=== PATIENT | female | born 2000 | race Caucasian/White ===

== ENCOUNTER 2019-08-30 15:57 | Observation (INO) ==
[2019-08-30] MEDS ORDERED: Isovue-370 500 ML BOTTLE IVP ONE (16:25)
[2019-08-30 17:00] LABS: Basophils % 0.4 %; Eosinophils # 0.2 K/mcL (0.0-0.6); Eosinophils % 2.1 %; Hematocrit 37.9 % (35.3-44.9); Hemoglobin 13.1 g/dL (11.5-15.4); Immature Granulocytes % 0.1 % (0-4); Lymphocytes # 1.3 K/mcL (0.6-4.6); Lymphocytes % 17.7 %; Mean Corpuscular HGB Conc 34.6 g/dL (31.6-35.5); Mean Corpuscular Hemoglobin 30.3 pg (28.0-33.3); Mean Corpuscular Volume 87.7 fL (83.0-100.0); Mean Platelet Volume 9.6 fL (9.4-12.4); Monocytes # 0.6 K/mcL (0.0-1.3); Monocytes % 8.1 %; Neutrophils # 5.2 K/mcL (1.6-8.9); Platelet Count 263 K/mcL (140-400); Red Blood Count 4.32 M/mcL (3.82-4.97); Red Cell Distribution Width 11.7 % (11.5-14.5); Segmented Neutrophils % 71.6 %; White Blood Count 7.3 K/mcL (4.3-11.1)
[2019-08-30 17:15] LABS: BUN/Creatinine Ratio 14 (6-26); Blood Urea Nitrogen 10 mg/dL (6-20); Calcium 9.8 mg/dL (8.6-10.3); Carbon Dioxide 26 mEq/L (23-29); Chloride 102 mEq/L (98-107); Glucose 94 mg/dL (70-105); Osmolality,Calculated 283 (280-300); Potassium 3.9 mEq/L (3.5-5.1); Sodium 137 mEq/L (136-145); eGFR For African Americans > 60 (> 60); eGFR For Non-African Americans > 60 (> 60)
[2019-08-30 17:16] LABS: Troponin I < 0.03 ng/mL (< 0.04)
[2019-08-30 17:29] LABS: Bacteria,Urine None Seen per hpf (None-Few); Bilirubin,Urine Negative (Negative); Blood,Urine Large (Negative); Clarity,Urine Clear (Clear); Color,Urine Yellow (Yellow); Glucose,Urine (UA) Normal (Normal); Hyaline Casts,Urine None Seen per lpf (None-Few); Ketones,Urine Negative (Negative); Leukocyte Esterase,Urine Negative (Negative); Nitrite,Urine Negative (Negative); PH,Urine 6.5 pH Units (5.0-8.0); Protein,Urine Negative (Neg-Trace); Specific Gravity,Urine 1.021 (1.010-1.025); Squamous Epithelial Cell,Urine Many per lpf (None-Few); Urobilinogen,Urine Normal (Normal); WBC,Urine 0-3 per hpf (0-3)
[2019-08-30 17:39] LABS: INR 1.9; Prothrombin Time 21.6 Seconds (9.4-12.1)
[2019-08-30] MEDS ORDERED: *HR* Heparin 5,000 UNIT/ML VIAL IVP ONE (19:12)
[2019-08-30] MEDS ORDERED: *HR* Heparin 5,000 UNIT/ML VIAL IVP PRN (19:12)
[2019-08-30] MEDS ORDERED: Heparin 25,000 UNIT/250 ML D5W 25,000 UNIT/250 ML IV.SOLN IVC SCH (19:15)
[2019-08-30] MEDS ORDERED: Morphine Sulfate 2 MG/ML SYRINGE IVP ONE (19:21)
[2019-08-30 19:26] LABS: Hematocrit 35.1 % (35.3-44.9); Hemoglobin 12.2 g/dL (11.5-15.4); Mean Corpuscular HGB Conc 34.8 g/dL (31.6-35.5); Mean Corpuscular Hemoglobin 30.6 pg (28.0-33.3); Mean Platelet Volume 9.4 fL (9.4-12.4); Platelet Count 233 K/mcL (140-400); Red Blood Count 3.99 M/mcL (3.82-4.97); Red Cell Distribution Width 11.6 % (11.5-14.5); White Blood Count 7.7 K/mcL (4.3-11.1)
[2019-08-30] MEDS: Heparin 25,000 UNIT/250 ML D5W 25,000 UNIT/250 ML IV.SOLN IVC SCH (19:34)
[2019-08-30 19:36] LABS: INR 1.5; Prothrombin Time 17.6 Seconds (9.4-12.1)
[2019-08-30 19:39] LABS: Heparin anti-factor XA UFH 1.37 IU/mL (0.30-0.70)
[2019-08-30] MEDS ORDERED: Naloxone 0.4 MG/ML INJ IVP PRN (23:40)
[2019-08-30] MEDS ORDERED: Ondansetron ODT 4 MG TAB.RAPDIS SL PRN (23:40)
[2019-08-30] MEDS ORDERED: 0.9 % Sodium Chloride 1,000 ML IVC SCH (23:45)
[2019-08-31] MEDS ORDERED: Naloxone 0.4 MG/ML INJ IVP PRN ×2 (01:35→13:56)
[2019-08-31 01:55] LABS: Basophils % 0.4 %; Eosinophils # 0.1 K/mcL (0.0-0.6); Eosinophils % 1.7 %; Hematocrit 33.3 % (35.3-44.9); Hemoglobin 11.4 g/dL (11.5-15.4); Immature Granulocytes % 0.3 % (0-4); Lymphocytes # 1.8 K/mcL (0.6-4.6); Lymphocytes % 26.3 %; Mean Corpuscular HGB Conc 34.2 g/dL (31.6-35.5); Mean Corpuscular Hemoglobin 30.1 pg (28.0-33.3); Mean Corpuscular Volume 87.9 fL (83.0-100.0); Mean Platelet Volume 9.7 fL (9.4-12.4); Monocytes # 0.5 K/mcL (0.0-1.3); Monocytes % 7.6 %; Neutrophils # 4.5 K/mcL (1.6-8.9); Platelet Count 224 K/mcL (140-400); Red Blood Count 3.79 M/mcL (3.82-4.97); Red Cell Distribution Width 11.6 % (11.5-14.5); Segmented Neutrophils % 63.7 %
[2019-08-31 02:07] LABS: Alanine Aminotransferase 4 Units/L (7-52); Albumin 3.7 g/dL (3.5-5.7); Albumin/Globulin Ratio 1.2 (1.1-2.2); Alkaline Phosphatase 41 Units/L (34-104); Aspartate Amino Transferase 11 Units/L (13-39); BUN/Creatinine Ratio 18 (6-26); Bilirubin,Total 0.4 mg/dL (0.3-1.0); Blood Urea Nitrogen 10 mg/dL (6-20); Carbon Dioxide 23 mEq/L (23-29); Chloride 105 mEq/L (98-107); Glucose 141 mg/dL (70-105); Osmolality,Calculated 285 (280-300); Potassium 3.3 mEq/L (3.5-5.1); Sodium 137 mEq/L (136-145); Total Protein 6.7 g/dL (6.4-8.9); eGFR For African Americans > 60 (> 60); eGFR For Non-African Americans > 60 (> 60)
[2019-08-31 02:10] LABS: Phosphorous 3.2 mg/dL (2.7-4.5); Troponin I < 0.03 ng/mL (< 0.04)
[2019-08-31 08:04] LABS: Estimated Average Glucose 97 mg/dl
[2019-08-31] MEDS: *HR* Heparin 5,000 UNIT/ML VIAL IVP PRN ×2 (10:01→17:09)
[2019-08-31] MEDS ORDERED: Acetaminophen 325 MG TABLET PO PRN (13:56)
[2019-08-31] MEDS: *HR* OxyCODONE Immed Rel 5 MG TABLET PO PRN (17:09)
[2019-08-31] MEDS: Heparin 25,000 UNIT/250 ML D5W 25,000 UNIT/250 ML IV.SOLN IVC SCH (18:18)
[2019-09-01 01:57] LABS: Basophils % 0.3 %; Eosinophils # 0.1 K/mcL (0.0-0.6); Eosinophils % 1.9 %; Hematocrit 32.5 % (35.3-44.9); Hemoglobin 11.3 g/dL (11.5-15.4); Immature Granulocytes % 0.2 % (0-4); Lymphocytes % 31.4 %; Mean Corpuscular HGB Conc 34.8 g/dL (31.6-35.5); Mean Corpuscular Hemoglobin 30.5 pg (28.0-33.3); Mean Corpuscular Volume 87.8 fL (83.0-100.0); Mean Platelet Volume 9.4 fL (9.4-12.4); Monocytes # 0.6 K/mcL (0.0-1.3); Monocytes % 8.8 %; Neutrophils # 3.7 K/mcL (1.6-8.9); Platelet Count 264 K/mcL (140-400); Red Cell Distribution Width 11.6 % (11.5-14.5); Segmented Neutrophils % 57.4 %; White Blood Count 6.5 K/mcL (4.3-11.1)
[2019-09-01 02:16] LABS: BUN/Creatinine Ratio 13 (6-26); Blood Urea Nitrogen 7 mg/dL (6-20); Calcium 9.1 mg/dL (8.6-10.3); Carbon Dioxide 25 mEq/L (23-29); Chloride 101 mEq/L (98-107); Glucose 92 mg/dL (70-105); Osmolality,Calculated 278 (280-300); Potassium 3.6 mEq/L (3.5-5.1); Sodium 135 mEq/L (136-145); eGFR For African Americans > 60 (> 60); eGFR For Non-African Americans > 60 (> 60)
[2019-09-01] MEDS ORDERED: Vancomycin 1,000 MG, Sodium Chloride IRRigation 1,000 ML IR ONE (06:00)
[2019-09-01] MEDS: Heparin 25,000 UNIT/250 ML D5W 25,000 UNIT/250 ML IV.SOLN IVC SCH (13:14)
[2019-09-01] MEDS: *HR* OxyCODONE Immed Rel 5 MG TABLET PO PRN (16:52)
[2019-09-01] MEDS ORDERED: WATER FOR INJ IVPB ONE (20:15)
[2019-09-01] MEDS ORDERED: ALTEPLASE IVPB ONE (20:15)
[2019-09-01] MEDS ORDERED: Lidocaine HCL 4 ML Topical Solution (Laryng-O-Jet Kit Sterile Pak) TP ONE (20:22)
[2019-09-01] MEDS ORDERED: *HR* Rocuronium Bromide 50 MG/5 ML VIAL ONE (20:22)
[2019-09-01] MEDS ORDERED: *HR* FentaNYL (PF) 100 MCG/2 ML VIAL ONE ×2 (20:22→22:14)
[2019-09-01] MEDS ORDERED: *HR* Midazolam HCl 2 MG/2 ML VIAL ONE (20:22)
[2019-09-01] MEDS ORDERED: *HR* Propofol 200 MG/20 ML VIAL IVP ONE (20:22)
[2019-09-01] MEDS ORDERED: Lidocaine -MPF 2% 2 ML VIAL ONE (20:22)
[2019-09-01] MEDS ORDERED: Bupivacaine-MPF 0.25% 10 ML VIAL ONE (20:23)
[2019-09-01] MEDS ORDERED: Isovue-300 50ML VIAL ONE ×2 (20:24→22:39)
[2019-09-01] MEDS ORDERED: Heparin 1,000 UNITS/500 mL 1,000 ML ONE (20:24)
[2019-09-01] MEDS ORDERED: Lidocaine 1% 20 ML MDV ONE (20:24)
[2019-09-01] MEDS ORDERED: Ondansetron 4 MG/2 ML VIAL ONE (20:28)
[2019-09-01] MEDS ORDERED: Dexamethasone 4 MG/ML VIAL ONE (20:28)
[2019-09-01] MEDS ORDERED: *HR* Meperidine 25 MG/ML SYRINGE IVP PRN (21:36)
[2019-09-01] MEDS ORDERED: *HR* OxyCODONE Immed Rel 5 MG TABLET PO PRN (21:36)
[2019-09-01] MEDS ORDERED: *HR* Promethazine 25 MG/ML VIAL IVP PRN (21:36)
[2019-09-01] MEDS ORDERED: Ondansetron 4 MG/2 ML VIAL IVP ONE (21:36)
[2019-09-01] MEDS ORDERED: Heparin 1,000 UNITS/500 mL 500 ML ONE ×2 (22:39→22:48)
[2019-09-01] MEDS ORDERED: Neostigmine Methylsulfate 3 MG/3 ML SYRINGE ONE (23:02)
[2019-09-01] MEDS: *HR* HYDROmorphone PF 0.5 MG/0.5 ML SYRINGE IVP PRN ×2 (23:33→23:45)
[2019-09-02 02:17] LABS: Basophils % 0.1 %; Eosinophils % 0.1 %; Hematocrit 29.7 % (35.3-44.9); Hemoglobin 10.6 g/dL (11.5-15.4); Immature Granulocytes % 0.5 % (0-4); Lymphocytes # 0.8 K/mcL (0.6-4.6); Mean Corpuscular HGB Conc 35.7 g/dL (31.6-35.5); Mean Corpuscular Hemoglobin 30.9 pg (28.0-33.3); Mean Corpuscular Volume 86.6 fL (83.0-100.0); Mean Platelet Volume 9.5 fL (9.4-12.4); Monocytes # 1.1 K/mcL (0.0-1.3); Monocytes % 7.1 %; Platelet Count 285 K/mcL (140-400); Red Blood Count 3.43 M/mcL (3.82-4.97); Red Cell Distribution Width 11.5 % (11.5-14.5); Segmented Neutrophils % 87.2 %
[2019-09-02 02:18] LABS: Neutrophils # 13.3 K/mcL (1.6-8.9); White Blood Count 15.3 K/mcL (4.3-11.1)
[2019-09-02] MEDS ORDERED: Ondansetron ODT 4 MG TAB.RAPDIS SL PRN (07:05)
[2019-09-02] MEDS ORDERED: Naloxone 0.4 MG/ML INJ IVP PRN (07:05)
[2019-09-02] MEDS ORDERED: Heparin 25,000 UNIT/250 ML D5W 25,000 UNIT/250 ML IV.SOLN IVC SCH (07:05)
[2019-09-02] MEDS ORDERED: *HR* Heparin 5,000 UNIT/ML VIAL IVP PRN ×2 (07:05)
[2019-09-02] MEDS ORDERED: Acetaminophen 325 MG TABLET PO PRN (07:05)
[2019-09-02] MEDS ORDERED: *HR* OxyCODONE Immed Rel 5 MG TABLET PO PRN (07:05)
[2019-09-02] MEDS ORDERED: *HR* Rivaroxaban 15 MG TABLET PO SCH (10:15)
[2019-09-02 10:51] VITALS: BP 100/65
== END 2019-09-02 13:03 | disposition home or self-care (01) ==
LOC: 2ANU 15:57 → EMEROOARM 15:57 → SUATTDRO 19:50 → 2ANU 20:17
PROVIDERS: ADMIT Family Medicine; ATTEND Student in an Organized Health Care Education/Training Program